=== PATIENT | male | born 1960 | race Caucasian/White ===

== ENCOUNTER 2019-10-30 14:38 | Emergency (ER) | payer MEDICARE, SELFPAY ==
[2019-10-30 14:50] VITALS: BP 171/97; PULSE 107; RESP 18; TEMP 36.7; O2SAT 99; BMI 24.3
[2019-10-30] MEDS: TET,DIPH,PERTUSS(ACELL),VAC/PF 0.5 ML SYRINGE IM (15:13)
[2019-10-30] MEDS: BACITRACIN OINT 0.9 GM PCKT 1 APPLIC TOP (15:13)
--- NOTE | 2019-10-30 15:22 | ED.WOUNDLAC ---
HPI - Wound/Laceration <ALANIS Thapa - Last Filed: 10/30/19 16:44> General Chief Complaint: Wound/Laceration Stated Complaint: Laceration of right arm Time Seen by Provider: 10/30/19 14:44 Source: patient Mode of arrival: Ambulatory Limitations: no limitations History of Present Illness HPI narrative: 58yo male presents emergency department for a laceration on the lateral aspect of his right forearm. He states he was carrying an ear did not realize and adjuvant was sharp, he sliced his skin on the meter. Patient states he had some tingling around the area. Bleeding was controlled with pressure. He is unsure the last when his last Tdap was updated. Patient denies any other injuries, fevers, chills, nausea, vomiting, diarrhea, or other concerns. Related Data Home Medications Medication Instructions Recorded Confirmed buprenorphine HCl 8 mg SUBLINGUAL QPM #0 06/10/17 allopurinol 100 mg #0 06/23/17 meloxicam [Mobic] 15 mg PO AMCC #0 06/23/17 Previous Rx's Medication Instructions Recorded acetaminophen 325 mg PO Q4-6HP PRN #60 06/24/17 aspirin 81 mg PO BID #60 06/24/17 hydroxyzine pamoate [Vistaril] 1 cap PO Q6HP PRN #45 cap 06/24/17 oxycodone 1 - 2 tab PO Q4-6HP PRN #60 tab 06/24/17 Allergies Allergy/AdvReac Type Severity Reaction Status Date / Time No Known Drug Allergies Allergy Verified 10/30/19 14:50 Review of Systems <ALANIS Thapa - Last Filed: 10/30/19 16:44> Review of Systems Narrative: REVIEW OF SYSTEMS: GENERAL: Denies fever or chills. HENT: Denies head trauma. EYE: Denies double vision or vision loss. CARDIOVASCULAR: Denies syncope. MUSCULOSKELETAL: Denies weakness, or deformities. INTEGUMENTARY: Complains of laceration, see HPI. NEURO: Denies numbness or tingling. Patient History <ALANIS Thapa - Last Filed: 10/30/19 16:44> Medical History No significant medical problems (Acute) Social History Smoking Status: Never smoker Smoking Status: Never smoker Substance Use Type: does not use Exam <ALANIS Thapa - Last Filed: 10/30/19 16:44> Initial Vital Signs Initial Vital Signs: Vital Signs Temperature 98.1 F 10/30/19 14:50 Pulse Rate 107 H 10/30/19 14:50 Respiratory Rate 18 10/30/19 14:50 Blood Pressure 171/97 H 10/30/19 14:50 Pulse Oximetry 99 10/30/19 14:50 PHYSICAL EXAMINATION: GENERAL: Well groomed, alert, and cooperative. Answers questions promptly and appropriately. Vital signs noted. HENT: Normocephalic, atraumatic. RESPIRATORY: Normal respiratory rate, trachea midline, airway patent. No stridor, nasal flaring or accessory muscle use. 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 Normal gait and coordination. Equal tone and mass bilaterally. EXTREMITIES: CMS intact. Moves all extremities. SKIN: Warm, dry, soft, appropriate color for ethnicity. 5.5 linear laceration/flap noted to the ulnar aspect of right forearm. NEURO: Alert and Oriented X 3. Good coordination. Light touch sensation intact proximal and distal to wound. PSYCH: Appropriate affect and mood. <Tc Torres MD - Last Filed: 10/30/19 17:33> Initial Vital Signs Initial Vital Signs: Vital Signs Temperature 98.1 F 10/30/19 14:50 Pulse Rate 107 H 10/30/19 14:50 Respiratory Rate 18 10/30/19 14:50 Blood Pressure 171/97 H 10/30/19 14:50 Pulse Oximetry 99 10/30/19 14:50 Procedures <ALANIS Thapa - Last Filed: 10/30/19 16:44> Laceration Repair Laceration 1: Site: upper extremity Side (If applicable): right Size (cm): 5.5 Description: linear Depth: simple, single layer Local Anesthetic: lidocaine 1% and with epi Amount of anesthesia used (mL): 8 Pre-repair: wound explored and irrigated extensively Skin layer closed with: nylon Size (cm): 4-0 Number of sutures: 5 Course <ALANIS Thapa - Last Filed: 10/30/19 16:44> Orders Ordered: Discontinued Medications Bacitracin (Bacitracin) 1 applic TOP NOW ONE Stop: 10/30/19 14:59 Last Admin: 10/30/19 15:13 Dose: 1 applic Documented by: MAURICIO Diphtheria/Tetanus/Acell Pertussis (Adacel) 0.5 ml IM .ONCE ONE Stop: 10/30/19 14:59 Last Admin: 10/30/19 15:13 Dose: 0.5 ml Documented by: MAURICIO Vital Signs Vital signs: Vital Signs - 8 hr 10/30/19 14:50 Temperature 98.1 F Pulse Rate 107 H Respiratory Rate 18 Blood Pressure 171/97 H Pulse Oximetry 99 <Tc Torres MD - Last Filed: 10/30/19 17:33> Orders Ordered: Discontinued Medications Bacitracin (Bacitracin) 1 applic TOP NOW ONE Stop: 10/30/19 14:59 Last Admin: 10/30/19 15:13 Dose: 1 applic Documented by: MAURICIO Diphtheria/Tetanus/Acell Pertussis (Adacel) 0.5 ml IM .ONCE ONE Stop: 10/30/19 14:59 Last Admin: 10/30/19 15:13 Dose: 0.5 ml Documented by: MAURICIO Vital Signs Vital signs: Vital Signs - 8 hr 10/30/19 14:50 Temperature 98.1 F Pulse Rate 107 H Respiratory Rate 18 Blood Pressure 171/97 H Pulse Oximetry 99 MDM - Wound/Laceration <ALANIS Thapa - Last Filed: 10/30/19 16:44> Medical Records Attestation: I reviewed the patient's medical records. Lab Data Attestation: I reviewed the patient's lab results. MDM Narrative Medical decision making narrative: Simple laceration repair without concern for foreign bodies given extensive wound exploration and history without report of broken fragments of mirror. Unsure exact cause of slight numbness around area, most likely related to surrounding nerves. Less concern for severe nerve compromise or tendon compromise given location, patient has full range of motion of wrist and hand and fingers against resistance without difficulty. Patient tolerated procedure well, he was taught wound care and follow-up instructions. Tdap was updated. Return precautions given for new or worsening symptoms. Patient agreed to plan of care verbalized understanding. Discharge Plan Departure Patient Disposition: Home Clinical Impression: Laceration Discharge Date/Time: 10/30/19 15:25 Instructions: DI for Laceration Repair Activity Restrictions/Additional Instructions: Thank you for entrusting me with your care today. As discussed, I have placed 5 sutures in your laceration, these will need to be removed in 7-10 days. Please keep the dressing on for the next 24 hours, after that you may remove it and wash gently with soap and water. Apply bacitracin or Neosporin to the area 1 to 2 times a day. No foreign bodies were found in your wound today. While there is low-risk for infection at this time, retained foreign bodies and infection are always possible with any cut or break in the skin. Please monitor the wound closely and be re-evaluated immediately if you develop any signs of infection such as pus, increasing redness, increasing pain, fevers, or any other concerns. Return emergency department for any new or worsening symptoms. Prescriptions: No Action buprenorphine HCl 8 MG tablet, sublingual 8 mg Sublingual QPM Qty: 0 RF: 0 meloxicam [Mobic] 15 MG tablet 15 mg PO AMCC Qty: 0 RF: 0 allopurinol 100 MG tablet 100 mg Qty: 0 RF: 0 acetaminophen 325 MG tablet 325 mg PO Q4-6HP PRNQty: 60 RF: 0 oxycodone 5 MG tablet 1 - 2 tab PO Q4-6HP PRNQty: 60 RF: 0 hydroxyzine pamoate [Vistaril] 25 MG capsule 1 cap PO Q6HP PRNQty: 45 RF: 0 aspirin 81 MG tablet,delayed release (DR/EC) 81 mg PO BID Qty: 60 RF: 0 Referrals: Jasbir Ramey DO [Primary Care Provider] -
== END 2019-10-30 15:25 | disposition home or self-care (01) ==
PROVIDERS: Emergency Provider Nurse Practitioner; Family Provider Family Medicine; PCP Family Medicine
DX: S51.811A Laceration without foreign body of right forearm, initial encounter (principal); W26.8XXA Contact with other sharp object(s), not elsewhere classified, initial encounter; Z23 Encounter for immunization
CPT/HCPCS: 12002; 90471; 99283; 90715

== ENCOUNTER → 2024-06-20 18:55 | Outpatient (CLI) | payer MEDICARE, SELFPAY ==
--- NOTE | 2024-06-20 18:58 | DI.RAD.S_ITS ---
PROCEDURE: XR CHEST 2V INDICATIONS: Difficulty breathing - left upper back pain TECHNIQUE: 2 views of the chest were acquired. COMPARISON: None. FINDINGS: Surgical changes and devices: None. Lungs and pleura: Lungs are clear. No pleural effusions or pneumothorax. Mediastinum: The cardiac contours are within normal limits. The aorta demonstrates calcification and tortuosity. Bones and chest wall: Age-appropriate bony degenerative changes are seen. Accentuated thoracic kyphosis is seen. No suspicious bony abnormalities. Soft tissues appear unremarkable. IMPRESSION: No acute cardiopulmonary abnormality is seen. Underlying senescent changes are seen, including bony degenerative change. Dictated by: Hector Rubio M.D. on 06/20/2024 at 18:21 Approved by: Hector Rubio M.D. on 06/20/2024 at 18:22
== END ==
LOC: RAD 18:56
PROVIDERS: Family Provider Family Medicine; PCP Family Medicine; Referring Provider Registered Nurse; Visit Provider Registered Nurse
DX: R06.89 Other abnormalities of breathing (principal); M40.204 Unspecified kyphosis, thoracic region
CPT/HCPCS: 71046